=== PATIENT | female | born 1975 | race Caucasian/White ===

== ENCOUNTER 2016-12-16 08:00 | Inpatient (IN) ==
[2016-12-19 11:53] LABS: MANUAL DIFF NEEDED? NO; URINE MICRO REVIEW NEEDED? NO; URINE SOURCE VOIDED
[2016-12-19 12:01] LABS: BASO% 0.6 % (0.0-0.8); EOS# 0.14 X1000 (0.0-0.7); EOS% 2.6 % (0.0-10.0); HEMATOCRIT 38.3 % (37.0-47.0); HEMOGLOBIN 12.9 g/dL (12.0-16.0); LYMPH# 1.66 X1000 (1.2-3.4); LYMPH% 31.3 % (20.5-51.1); MCH 29.7 PG (27-31); MCHC 33.7 g/dL (33-37); MCV 88.2 FL (81-99); MONO# 0.32 X1000 (0.11-0.59); MPV 9.5 FL (7.4-10.4); NEUT% 59.5 % (42.2-75.2); PLT 322 X1000 (130-400); RBC 4.34 XMIL (4.2-5.4)
[2016-12-19 12:02] LABS: BILIRUBIN URINE NEGATIVE (NEGATIVE); BLOOD URINE NEGATIVE (NEGATIVE); COLOR YELLOW; GLUCOSE URINE NEGATIVE (NEGATIVE); LEUKOCYTES URINE MODERATE (NEGATIVE); NITRITE URINE NEGATIVE (NEGATIVE); PH URINE 6.5; PROTEIN URINE NEGATIVE (NEGATIVE); SP GRAVITY URINE 1.011; TURBIDITY URINE CLEAR (CLEAR); UROBILINOGEN URINE NORMAL (NORMAL)
[2016-12-19 12:05] LABS: UR EPITHELIAL CELLS <10 /HPF (<10); URINE BACTERIA 1+ /HPF; URINE RBC <10 /HPF (<10); URINE WBC <10 /HPF (<10)
--- NOTE | 2016-12-22 16:21 | HISTORY AND PHYSICAL ---
HISTORY OF PRESENT ILLNESS: Omkar is a 41-year-old, white female, para 1, with a history of vaginal delivery, being admitted at this time primarily for partial colon resection secondary to a colon cancer that was discovered on recent colonoscopy. Omkar had been in the office in late October and indicated at that time of her annual TRAINING ASSISTANT exam that she had seen some blood in her stool from time to time and that she was going to need to go ahead and get in with Dr. Oliveira to have that evaluated further. As part of our exam that day, a Hemoccult was done and it was positive. With that, and with the history, I urged her to go ahead and medially and get in with Dr. Oliveira which she did, and they did ultimately find an invasive adenocarcinoma of the colon at the rectosigmoid junction. With that, Dr. Sanchez is planning to perform the surgery for the colon cancer and he felt that in view of the fact that there are some involved lymph nodes in that area and also with the uterus, tubes and ovaries in that area, that it may be more amenable for them to be able to perform the intestinal surgery if the uterus and ovaries were extirpated and out of the way. Omkar understood that point, and I agree as well as this does come up from time to time in those situations and it does make the surgery more amenable to be able to be completed successfully. Omkar does understand that with removal of both ovaries, that it would be immediate menopause and that assuming that postoperatively there is no reason that we could not consider, that she may be a candidate for estrogen replacement therapy, but will wait and see how things go regarding that post surgery. We discussed the nature of the abdominal hysterectomy with bilateral salpingo-oophorectomy. She understands the nature of the procedure, the risk involved, the risk of anesthesia, and again, the purpose in doing this to facilitate the intestinal procedure. Plans are for Dr. Sanchez to assist me with the TRAINING ASSISTANT portion and then he will likely have one of his partners assist him with the intestinal portion. Overall, Omkar understands as well issues including, but not limited to infection, hemorrhage, fistula formation postoperatively, injury to surrounding structures, and even and overall, she feels well informed, but feels that this is definitely the direction she wants to go ahead and take in hopes of not having to look at any issues with this in the future. PAST SURGICAL HISTORY: Also significant for a hysteroscopy dilatation and curettage and endometrial ablation in the past. ALLERGIES: She has no known allergies. FAMILY HISTORY, SOCIAL HISTORY, REVIEW OF SYSTEMS: Other than the above, are for the most part noncontributory. PHYSICAL EXAMINATION: GENERAL: Exam is that of a well-developed, well-nourished, 41-year-old, white female in no acute distress. VITAL SIGNS: Stable. Noted on the chart. HEENT: Unremarkable. NECK: Without nodes or thyromegaly. HEART: Regular without murmurs, gallops, or rubs. LUNGS: Clear. BREASTS: Without mass or tenderness. ABDOMEN: Soft, nontender. No masses. PELVIC: Normal external female genitalia. Vagina is clean. Cervix, no lesions. Uterus is normal size, midposition. No adnexal masses or any pelvic tenderness. Rectovaginal confirms. EXTREMITIES: Without tenderness or edema. NEUROLOGICAL: Grossly normal. Recent Pap smear was within normal limits. Overall, normal exam. ASSESSMENT: Invasive adenocarcinoma of the colon. PLAN: Total abdominal hysterectomy with bilateral salpingo-oophorectomy in order to facilitate better access to the pelvis for the colon surgery. cc: MD Izabella Harrington MD
[2016-12-23] MEDS ORDERED: VALIUM ONE (05:58)
[2016-12-23] MEDS ORDERED: PEPCID ONE (05:58)
[2016-12-23] MEDS ORDERED: TRANSDERM-SCOP ONE (05:58)
[2016-12-23] MEDS ORDERED: REGLAN ONE (05:58)
[2016-12-23] MEDS ORDERED: LR 1,000 ML ONE ×2 (05:59→13:47)
[2016-12-23] MEDS ORDERED: INVANZ 1 GM/NS 1 GM/50 ML IVPB ONE (05:59)
[2016-12-23] MEDS ORDERED: ENTEREG ONE (06:22)
[2016-12-23] MEDS ORDERED: SODIUM CHLORIDE 0.9% 10 ML ONE ×2 (08:11→08:45)
[2016-12-23] MEDS ORDERED: MARCAINE 0.25% PF ONE (08:11)
[2016-12-23] MEDS ORDERED: EXPAREL 1.3% ONE (08:12)
[2016-12-23] MEDS ORDERED: DIPRIVAN 1% ONE (08:41)
[2016-12-23] MEDS ORDERED: XYLOCAINE-MPF 2% ONE (08:42)
[2016-12-23] MEDS ORDERED: NORCURON ONE ×2 (08:42→10:33)
[2016-12-23] MEDS ORDERED: VERSED ONE (08:49)
[2016-12-23] MEDS ORDERED: EPHEDRINE ONE (09:54)
[2016-12-23] MEDS ORDERED: TORADOL ONE (09:56)
[2016-12-23] MEDS ORDERED: OFIRMEV 1000 MG/ISOTONIC SOLN 1,000 MG/100 ML BOTTLE ONE (09:57)
[2016-12-23] MEDS ORDERED: ZOFRAN ONE ×2 (09:57→13:10)
[2016-12-23] MEDS ORDERED: NEOSTIGMINE ONE (10:38)
[2016-12-23] MEDS ORDERED: ROBINUL ONE (10:39)
[2016-12-23] MEDS ORDERED: BRIDION ONE (12:26)
[2016-12-23 12:52] LABS: URINE MICRO REVIEW NEEDED? NO; URINE SOURCE CATH
[2016-12-23] MEDS: MORPHINE ONE ×3 (13:02→13:23)
[2016-12-23 13:03] LABS: BILIRUBIN URINE NEGATIVE (NEGATIVE); BLOOD URINE TRACE (NEGATIVE); COLOR YELLOW; GLUCOSE URINE NEGATIVE (NEGATIVE); LEUKOCYTES URINE NEGATIVE (NEGATIVE); NITRITE URINE NEGATIVE (NEGATIVE); PROTEIN URINE 50 mg/dL (NEGATIVE); SP GRAVITY URINE 1.029; TURBIDITY URINE TURBID (CLEAR); UROBILINOGEN URINE NORMAL (NORMAL)
[2016-12-23 13:06] LABS: UR EPITHELIAL CELLS <10 /HPF (<10); URINE BACTERIA NEGATIVE /HPF; URINE RBC <10 /HPF (<10); URINE WBC <10 /HPF (<10)
[2016-12-23] MEDS: DILAUDID ONE ×4 (13:38→14:00)
--- NOTE | 2016-12-23 15:45 | PROGRESS NOTE ---
DATE: 12/23/2016 Omkar is now about 4 hours status post total abdominal hysterectomy with bilateral salpingo- oophorectomy. As a continuation of that procedure, she underwent colon resection for adenocarcinoma of the colon. I did visit with Omkar again a short while ago in the recovery room. She seemed to be managing well with her pain relief. The urine output was mostly clear, just a very faint pinkish tinge left in the bag. Vital signs are stable and she seems to be doing well postop. I did visit again with her Mohamud as I did immediately after the procedure to let him know how she was doing and that we expected her to be able to move on up to room 457 within a short while. Will continue to follow her. Dr. Sanchez will take care of most of the orders and decisions regarding diet and activity and hospitalization length and will continue to visit with her at least once or twice a day or more if needed and as close as she gets to going home, we will go over all of our pertinent instructions as well. cc: MD Izabella Harrington MD
[2016-12-23] MEDS: MORPHINE INJ PRN ×3 (16:16→21:36)
[2016-12-23] MEDS: LR 1,000 ML IV SCH (16:17)
--- NOTE | 2016-12-23 17:32 | OPERATIVE NOTE ---
PROCEDURE DATE: 12/23/2016 PREOPERATIVE DIAGNOSIS: Rectal cancer. POSTOPERATIVE DIAGNOSIS: Rectal cancer. PRINCIPAL PROCEDURE: 1. Total abdominal hysterectomy per Dr. Geo Berger. 2. Low anterior colon resection with takedown of the splenic flexure per Dr. Sanchez. SURGEON: Izabella Sanchez MD GOURMET COFFEE ATTENDANT: Tom Zuniga MD and Asael Marrero RN. ANESTHESIA: General. She also underwent a TAP block by Anesthesia prior to surgery. ESTIMATED BLOOD LOSS: 100 mL. DRAINS: None. INDICATIONS: Ms. Omkar Flores is a 41-year-old, healthy white female, who had rectal bleeding and underwent colonoscopy by Dr. Oliveira, which documented a cancer within the proximal rectum. She had a known enlarged uterus and there was a question by x-ray of her left ovary. Dr. Geo Berger was her CHILD PROTECTIVE SERVICES SOCIAL WORKER and we felt, not only for exposure, but also because of her enlarged uterus and questions left ovary, that she ought to have a total abdominal colectomy, in addition to her colon resection. FINDINGS: Her uterus was slightly enlarged. There was no obvious involvement of the either ovary with colon cancer. There was no obvious enlarged mesenteric lymph nodes involve with this cancer. The cancer was at the peritoneal reflection. We performed a low anterior colon resection through a lower midline incision. We did take down the splenic flexure with retraction. We felt we had no tension on our end-to-end stapled EEA anastomosis. When we blew air across it there was no leak. We felt we had a good cancer operation. We had plenty of distal rectum with our specimen and we removed the sigmoid colon with the inferior mesenteric vessels down to their base. The left and right ureters were visualized and preserved. There was no palpable metastatic disease within the liver. The gallbladder appeared to be normal. No other intra-abdominal pathology was noted. DESCRIPTION OF PROCEDURE: The patient underwent a bowel prep prior to her presentation and also she received oral antibiotics. She presented through outpatient surgery on the day of surgery. She went to the operating room, received general anesthesia, was intubated, and an anesthetic block was placed using ultrasound guidance in her abdomen by anesthesia prior to our procedure. Ortega catheter tube was placed. Her abdomen was prepped and draped in a sterile field. We used an Ioban on the skin. She received IV Invanz prior to surgery. Dr. Geo Berger and I worked first. I assisted Dr. Berger on his total abdominal hysterectomy. I made the lower midline incision with a 10 blade scalpel. This incision was carried down through the subcutaneous tissue in the midline fascia using cautery, carefully entered the abdomen, and I placed a large wound protector for retraction and exposure. The patient was placed in Trendelenburg and I packed the small bowel superiorly. We performed a total abdominal hysterectomy, which I expect Dr. Geo Berger will dictate. After completion of the total abdominal hysterectomy, we directed our attention to the colon operation. I mobilized the sigmoid colon off the left pelvis using cautery, down along the pelvic sidewall below the left ureter, in the peritoneum anterior to the mass and then on the right side of the colon. I got into the midline space at the sacrum and we initially worked distally. Using mostly cautery for dissection, we mobilized the rectum distal to the tumor. I also used the ligature as needed. I made sure that we had a good mesorectum excision even past the tumor. I used a 45 TA stapler to come across the mid rectum. I used a Peg on the proximal side of this. We divided the rectum with a 10 blade scalpel. The stapler was released. I marked both edges of our stapled rectum with 3-0 silk stitches. We then worked from distal to proximal; again, dissecting mostly with the cautery right along the sacrum within the midline, up to the base of our inferior mesenteric vessels. I use Hetal clamps to ligate these vessels individually and then suture ligated them with 2-0 stick ties. We then came up right there at the descending sigmoid colon junction, ligating vessels between hemostats as needed, and using 3-0 silk ties. I used a pursestring clamp at the proximal division. We used Farrar scissors to divide the descending sigmoid junction just distal to my a pursestring clamp. The specimen was passed off. I then opened the proximal descending colon at the pursestring anastomosis. We sized it and chose a 28 mm anvil. The anvil was placed into the descending colon and tied the pursestring around the anvil. We took some time to remove some of the loose fatty tissue at the anvil. We then directed our attention to the rectal stump and again we used a right angle clamp and the cautery to clean off the distal end of the stump. I went below. Dr. Znuiga was above. I placed a 28 mm EEA stapler through the rectum after sizing it, and Dr. Zuniga mated the anvil to my EEA stapler, with care not to twist the bowel. I brought the anvil down to my EEA stapler and fired it. We had 2 complete donuts and I removed the EEA stapler through the rectum. I blew air across the anastomosis and there was no evidence of leakage, when we put warm saline into the pelvis. I changed gloves and gowns went back to the abdomen. I placed two 3-0 silk stitches on either corner of our stapled anastomosis. We were happy that there was no tension and we placed the bowel back in anatomically correct position. I placed the cecum into the pelvis first and then I ran the small bowel and made sure that there was no twisting of the small bowel mesentery. I placed the greater omentum over the surface of the small bowel. I closed the peritoneum with a running 0 Vicryl stitch and then closed the fascia with a Maxon stitch. Again, the wound was irrigated and we closed the skin with a skin clip biofuels production technician. It must be noted that Dr. Zuniga was present throughout the colon part of these procedures. His presence was necessary to help with the EEA stapler, retraction, and dissection of this tumor and colon. cc: Izabella Sanchez MD
[2016-12-23] MEDS: OFIRMEV 1000 MG/ISOTONIC SOLN 1,000 MG/100 ML BOTTLE IV SCH (17:44)
[2016-12-23] MEDS: TORADOL IV SCH (17:44)
--- NOTE | 2016-12-23 18:11 | PROGRESS NOTE ---
DATE: 12/23/2016 surgery on Ms. Omkar Flores, she is awake, cooperative, lying in bed, in no acute distress. I have discussed with the family her surgery. We will continue ice chips and IV fluids tonight. Her heart rate is 94, blood pressure 114/62, O2 saturation 100%. She does have a Ortega catheter tube in place. Her urine output is adequate. It was a little blood tinged during surgery but I feel that we did not injure the ureters. cc: Izabella Sanchez MD
--- NOTE | 2016-12-23 19:01 | OPERATIVE NOTE ---
PROCEDURE DATE: 12/23/2016 SURGEON: Neo Berger MD GLASS BLOWER HELPER: Izabella Sanchez MD ANESTHESIA: General endotracheal, Dr. Horne. PREOPERATIVE DIAGNOSES: 1. Invasive adenocarcinoma of the colon. Enlarged lymph nodes in the left adnexal area. 2. Abnormal uterine bleeding. 3. Structural issues that would be technically difficult for the colon surgery by having the uterus, tubes, and ovaries in place. PROCEDURE PERFORMED: Total abdominal hysterectomy. OPERATIVE NOTE: Should be noted that prior to the procedure, after general anesthesia had been induced, Dr. Horne performed an abdominal TAP block for her postoperative pain. Then the usual prepping and draping was done. Ortega catheter was inserted under sterile technique and the vaginal prep was done as well. was then carefully placed in the Chad stirrups, as Dr. Sanchez would need that positioning during the colon portion of the procedure. We entered the abdomen through the low Pfannenstiel incision, carrying it around the umbilicus for added exposure. Once the peritoneum was opened and extended, the retractor was inserted and loops of bowel were displaced superiorly and out of the field of the surgery with moist lap packs. The fundus of the uterus was then grasped with a Carri clamp and was elevated. Both tubes and ovaries appeared to be normal; however, the ovaries did appear to be somewhat atrophic. We began by using the LigaSure and grasped the right tube and ovary elevating it to expose the infundibulopelvic ligament. The ureter was found to be deep to these structures and normal peristalsis was noted. Then with the LigaSure, we were able to clamp, cauterized, and transected our way across the infundibulopelvic ligament and carried this toward the uterus, and then ultimately across to release the round ligament away from the uterus as well. Then the adnexal structures were removed from the specimen itself. The same exact procedure was done on the left side after proper identification and the ureter was found to be deep to those structures and again we released the tube and ovary from the infundibulopelvic ligament, as well as transecting the round ligament. After doing this and passing those specimens off the table, we then with sharp dissection, incised the reflected peritoneum anteriorly, and with both sharp and blunt dissection mobilized the bladder down and away from the cervix anteriorly. Then using curved zeppelin clamps, we clamped and then transected and suture ligated using 0 Polysorb the uterine vessels on each side. This was actually done a 2-step manner to thereby doubly ligate the uterine vessels. Then swapping over to a straight zeppelin clamp and in a stepwise manner, we clamped, transected, and suture ligated the remaining paracervical tissue down to and ultimately including the uterosacral ligament on each side. Once that was incorporated into a pedicle it was tagged for identification purposes with another bite on each side, and then using the curved zeppelin clamp we were able to enter the upper angles of the vagina. Angle sutures were placed in a evwjwg-ck-ryman fashion and being tacked to the uterosacrals for support purposes. The remainder of the vaginal attachments to the cervix were then circumscribed away using the Zainab scissors and the specimen was passed off the table intact. Then, the remainder of the vaginal cuff was reapproximated with approximately 4 more ijxzgs-ue-fwilp style stitches to provide good closure. We did spot couple of oozing points, which we were able to control with the electrocautery and another couple that required placement of a superficially placed riobgf-ru-iqkix style stitch. In the end the case, hemostasis for the hysterectomy portion was considered to be good. ESTIMATED BLOOD LOSS: Was about 75 mL. All the excess suture material was cut. At this point, after we were satisfied with our hemostasis, I dropped out of the operative field and Dr. Zuniga came in to assist Dr. Sanchez with the colon resection and completion of the procedure. Up to this point, all of our needle, sponge, and instrument counts had been correct. Omkar had tolerated the procedure well to this point and urine output was slightly pinkish, but not any gross blood in the urine. It should be noted that later on in the recovery room the urine was beginning to clear as expected. cc: MD Izabella Harrington MD
[2016-12-23] MEDS ORDERED: ENTEREG PO SCH (21:00)
[2016-12-23] MEDS: PERIDEX MT SCH (21:36)
[2016-12-24] MEDS ORDERED: ZOFRAN IV PRN
[2016-12-24] MEDS: OFIRMEV 1000 MG/ISOTONIC SOLN 1,000 MG/100 ML BOTTLE IV SCH ×5 (00:09→23:11)
[2016-12-24] MEDS: TORADOL IV SCH ×2 (00:10→05:38)
[2016-12-24] MEDS: LR 1,000 ML IV SCH ×3 (03:07→15:51)
[2016-12-24] MEDS: MORPHINE INJ PRN ×3 (03:08→11:44)
[2016-12-24] MEDS: LOVENOX SUBQ SCH (05:38)
[2016-12-24] MEDS: ENTEREG PO SCH ×2 (08:46→20:12)
[2016-12-24] MEDS: PERIDEX MT SCH ×2 (08:47→20:12)
--- NOTE | 2016-12-24 12:50 | PROGRESS NOTE ---
DATE: 12/24/2016 Omkar is now about 24 hours status post SAIMA/BSO and subsequent partial colectomy for adenocarcinoma of the colon. She had a reasonably restful night. Her vital signs have been stable and she has remained afebrile. The incision is clean and dry, as far as the dressing, and her output has been adequate and has remained clear. Extremities are without tenderness or edema. Plans were made as per Dr. Sanchez. He will be directing the orders, and the progression of her diet and her activities as the days proceed forward. I will continue to keep an eye on Omkar from my perspective, as well, over her hospitalization. She is stable on postop day #1. cc: MD Izabella Harrington MD
--- NOTE | 2016-12-24 15:00 | PROGRESS NOTE ---
DATE: 12/24/2016 I visited with Omkar just past the lunchtime hour. She is now a little over 24 hours status post SAIMA/BSO with partial colon resection for adenocarcinoma of the colon. She has had a good morning and has been able to remain afebrile with stable vital signs, has been able to be up and moving around, and continues to consume some ice chips, and basically looking forward to having the catheter removed tomorrow and continuing to make good progress. No new findings at this point. She had no specific request or desires at this point, and her Mohamud was by her side there in the room. They will let us know should there be any problems along the way, and I reassured that we will be checking in at least daily, if not more than that. She is stable postop. cc: MD Izabella Harrington MD
[2016-12-24] MEDS: NORCO-10 PO PRN ×2 (15:51→21:46)
[2016-12-25] MEDS: NORCO-10 PO PRN ×4 (03:50→23:43)
[2016-12-25] MEDS: LR 1,000 ML IV SCH ×4 (03:52→18:53)
[2016-12-25] MEDS: OFIRMEV 1000 MG/ISOTONIC SOLN 1,000 MG/100 ML BOTTLE IV SCH ×4 (05:13→23:44)
[2016-12-25] MEDS: LOVENOX SUBQ SCH (05:13)
[2016-12-25] MEDS: ENTEREG PO SCH ×2 (10:08→20:53)
[2016-12-25] MEDS: PERIDEX MT SCH ×2 (10:08→20:53)
--- NOTE | 2016-12-25 13:17 | PROGRESS NOTE ---
DATE: 12/25/2016 Omkar is now on postop day 2 status post total abdominal hysterectomy with bilateral salpingo- oophorectomy and partial colon resection secondary to adenocarcinoma of the colon. She has remained stable with vital signs. She did mention as I visited with her at about 10:15 that she felt a little bit short of breath after being up for bathing and ambulating but did not seem to be in any distress whatsoever. Her oxygen saturations have been within normal range. Will continue as per orders from Dr. Sanchez regarding the colon surgery and when he feels that she has made adequate progress to be discharged to home then he will do so. I will continue to visit with Omkar and her Mohamud somewhat peripherally from this point in hopes that good progress continues to be made on a daily basis. She is stable postop. cc: MD Izabella Harrington MD
[2016-12-25] MEDS: MORPHINE INJ PRN (22:36)
[2016-12-26] MEDS: OFIRMEV 1000 MG/ISOTONIC SOLN 1,000 MG/100 ML BOTTLE IV SCH (05:32)
[2016-12-26] MEDS: LR 1,000 ML IV SCH (05:32)
[2016-12-26] MEDS: LOVENOX SUBQ SCH (06:02)
[2016-12-26] MEDS ORDERED: TYLENOL ARTHRITIS PO PRN (09:26)
[2016-12-26] MEDS: NORCO-10 PO PRN ×3 (10:04→22:19)
[2016-12-26] MEDS: PERIDEX MT SCH ×2 (10:05→20:38)
--- NOTE | 2016-12-26 10:17 | PROGRESS NOTE ---
DATE: 12/26/2016 Omkar is now 3 days status post SAIMA/BSO and partial colon resection for adenocarcinoma of the colon. She seems to be making good progress. She feels good. Minimal discomfort. She remains afebrile with stable vital signs and is consuming clear liquids successfully at this point and voiding without any difficulties. She also is ambulating in the hallways and voices no complaints. I indicated to Omkar and her Mohamud that I would keep a peripheral surveillance on her but that all of our orders and decisions going forward would be up to Dr. Sanchez as far as when she will increase her diet and be able to be discharged home. We did talk about having her come by the office next week some time when she goes to see him just for me to see how things are going along. She is stable postop and will just continue as ordered by Dr. Sanchez. cc: MD Izabella Harrington MD
[2016-12-27 05:09] VITALS: BP 101/53
[2016-12-27] MEDS: NORCO-10 PO PRN (06:44)
[2016-12-27] MEDS: LOVENOX SUBQ SCH (06:44)
--- NOTE | 2016-12-28 05:24 | DISCHARGE SUMMARY ---
ADMISSION DATE: 12/23/2016 DISCHARGE DATE: 12/27/2016 ADMITTED DIAGNOSES: 1. Rectal cancer. 2. Abnormal uterine bleeding. DISCHARGE DIAGNOSES: 1. Rectal cancer. 2. Abnormal uterine bleeding. PRINCIPLE PROCEDURE: 1. Total abdominal hysterectomy per Dr. Berger, 12/23/2016. 2. Low anterior colon resection with mobilization of the splenic flexure per Dr. Sanchez 12/23/2016. DISCHARGE DISABILITIES: Full. DISCHARGE DIET: Regular. DISCHARGE DISPOSITION: She will return to our outpatient offices next week for recheck. DISCHARGE MEDICATION: [place] 7.5 p.r.n. pain. HOSPITAL COURSE: Ms. Omkar Flores is a 41-year-old, healthy white female who works at our [employer]. She noted blood in her stool and was evaluated by Dr. Oliveira with colonoscopy, which documented a rectal cancer. She underwent a bowel prep prior to her presentation on 12/23/2016, including oral antibiotics and then she went to the operating room for a total abdominal hysterectomy and a low anterior colon resection as described above. We felt both procedures went well and after surgery, she had a Ortega catheter tube in place but we did not use an NG tube and she went to the recovery room and then the floor. At the time of surgery, there was no evidence of metastatic disease and a preoperative CT scan also suggested no metastatic disease. We felt that her postoperative convalescence has been normal. Initially, she was on Entereg and her bowel activity returned on postop day 3. We advanced her diet to full liquids. She was tolerating those. Her in lower midline incisions seemed to be healing well without evidence of infection. On the day of discharge, her heart rate was 69, blood pressure 101/53, O2 saturation 100%. She was afebrile. She was voiding without difficulty and she was walking around in the room. She has actually had a shower. It was felt safe to discharge her home under the care of her with followup in my outpatient offices next week for skin clip removal and recheck. She knows to contact us with any increasing abdominal pain, fever or distention. cc: MD Juan Infante MD Thomas C. Ray, MD
== END 2016-12-27 10:14 | disposition home or self-care (01) ==
LOC: SURHOLD 12-23 05:40 → 4N 12-23 12:33
PROVIDERS: ADMIT Surgery; ATTEND Surgery